=== PATIENT | female | born 1965 | race Caucasian/White ===

== ENCOUNTER 2016-06-05 11:07 | Emergency (ER) | payer OTHER ==
[~2016-06-05] VITALS: Ht 167.6 cm; Wt 108.0 kg
--- NOTE | 2016-06-05 11:28 | ED GI/GU/ABDOMINAL COMPLAINT ---
History of Present Illness General Chief Complaint: General Adult Stated Complaint: "I FEEL DEHYDRATION" Source: patient, old records Exam Limitations: no limitations Vital Signs & Intake/Output Vital Signs & Intake/Output Vital Signs Date Time Temp Pulse Resp B/P Pulse O2 O2 Flow FiO2 Ox Delivery Rate 06/05 1403 98.7 110 18 166/61 97 06/05 1218 99.5 100 18 128/78 98 Room Air Room Air 06/05 1113 97.8 112 20 131/83 97 Room Air Allergies Coded Allergies: acetaminophen (From VICODIN) (VOMIT 06/05/16) hydrocodone (From VICODIN) (VOMIT 06/05/16) morphine (DRY MOUTH 06/05/16) Reconcile Medications Ondansetron (Zofran Odt) 4 MG TAB.RAPDIS 1 TAB SL TID PRN NAUSEA Triage Note: ABDOMINAL PAIN X 2 DAYS N/V SINCE YESTERDAY. STATES SHARP PAINS IN ABDOMEN. STATES HER RIGHT HAND OCCASIONALLY HAS PINS AND NEEDLES IN IT Triage Nurses Notes Reviewed? yes ? n Is pt currently ? No Onset: Abrupt Duration: day(s): (2), intermittent, waxing and waning Timing: recent history Quality/Severity: aching, cramping Severity Numbers: 5 Location: generalized abdomen Radiation: no radiation Activities at Onset: none Prior Abdominal Problems: none No Modifying Factors: none Associated Symptoms: nausea/vomiting HPI: 50-year-old female with history of depression and IBS GERD presents emergency room complaining of a 2 day history of multiple episodes of nausea vomiting and generalized crampy intermittent abdominal pain. Pain is nonradiating. She denies any change in her bowel movements no diarrhea black or bloody stools no hematemesis.. The patient states she came in today because she feels dehydrated. She had some water and banana earlier this morning her last episode of vomiting was prior to this. She denies fevers or reports of chills. No cough congestion chest pain shortness of breath. She does not smoke. She reports to social alcohol use denies any recently. Her only abdominal surgery is significant 2005 for a polyp removal from her colon. No modifying factors or associated symptoms otherwise. (EUN HAYES,LASHAY) Past History Travel History Traveled to [place] past 21 day No Medical History Any Pertinent Medical History? see below for history Cardiovascular: GERD Psychiatric: depression Surgical History Surgical History: none Psychosocial History What is your primary language Kenyan Tobacco Use: Never used ETOH Use: occasional use Illicit Drug Use: denies illicit drug use Family History Hx Contributory? No (LASHAY MARTIN) Review of Systems Review of Systems Constitutional: Reports: see HPI. All Other Systems: Reviewed and Negative Comments Review of systems: See HPI, All other systems negative. Constitutional, no chills no fever, no malaise HEENT: No visual changes no sore throat no congestion Cardiovascular: No chest pain , no palpitation Skin, no jaundice no rashes, no change in skin Respiratory: No dyspnea no cough no sputum no hemoptysis GI: nausea vomiting, no diarrhea, no bloating/constipation : No dysuria No hematuria, no frequency, no discharge Muscle skeletal: No joint pain, no back pain, no neck pain, Neurologic: no headache Psych: No stress Heme/endocrine: No bruising no bleeding Immunology: No lymphadenopathy (LASHAY MARTIN) Physical Exam Physical Exam General Appearance: well developed/nourished, no apparent distress, alert, awake , comfortable Gastrointestinal: normal bowel sounds, soft, non-tender Comments: Well-developed well-nourished person in no acute distress HEENT: Normal EENT exam; PERRL, EOMI. HEAD is atraumatic. moist mucous membranes. Neck: Supple, no lymphadenopathy, normal range of motion Back: Nontender, no CVA tenderness. Full range of motion Cardiovascular: Regular rate and rhythms no murmurs rubs Respiratory: No respiratory distress. Patient speaking in full complete sentences. Breath sounds clear to auscultation bilaterally: NO W/R/R Abdomen: Soft, nontender nondistended, no appreciable organomegaly. Normal bowel sounds. No rebound/guarding, No appreciable enlargement of the abdominal aorta, No ascites. Extremity: No edema, full range of motion of extremities, Neuro: Alert oriented x3, motor sensory normal, There were no obvious focal neurologic abnormalities. Skin: No appreciable rash on exposed skin, skin is warm and dry. No jaundice Psych: Mood and affect is normal, memory and judgment is normal. Core Measures ACS in differential dx? No Severe Sepsis Present: No Septic Shock Present: No (LASHAY MARTIN) Progress Differential Diagnosis: appendicitis, biliary colic, bowel obstruction, colon cancer, cholecystitis, gastritis, hepatitis, inflamm bowel dis, intrauterine , pancreatitis, peptic ulcer, PUD/GERD Plan of Care: Orders Procedure Date/time Status HUMAN BETA HCG SCREEN 06/05 115 Complete Saline Lock 06/05 1132 Active LIPASE 06/05 1132 Complete COMPREHENSIVE METABOLIC PANEL 06/05 1132 Complete CBC WITHOUT DIFFERENTIAL 06/05 1132 Complete AMYLASE 06/05 1132 Complete Laboratory Tests 06/05/16 1157: Anion Gap 6, Estimated GFR > 60, BUN/Creatinine Ratio 35.0 H, Glucose 111 H, Calcium 9.1, Total Bilirubin 0.6, AST 28, ALT 46, Alkaline Phosphatase 68, Total Protein 7.0, Albumin 3.8, Globulin 3.2, Albumin/Globulin Ratio 1.2, Amylase 54, Lipase 65, Total Beta HCG NEGATIVE, CBC w Diff MAN DIFF ORDERED, RBC 4.77, MCV 85.7, MCH 29.5, RDW 13.6, MPV 7.3 L, Gran % 90.6 H, Lymphocytes % 6.2 L, Monocytes % 2.5, Eosinophils % 0.6, Basophils % 0.1, Absolute Granulocytes 6.0, Segmented Neutrophils 73, Band Neutrophils 12 H, Absolute Lymphocytes 0.4 L, Lymphocytes 9 L, Monocytes 5, Absolute Monocytes 0.2, Eosinophils 1, Absolute Eosinophils 0, Absolute Basophils 0, Platelet Estimate ADEQUATE, Anisocytosis 1+ , PUBS MCHC 34.4 06/05/16 1133: Total Beta HCG Cancelled Labs ordered old records reviewed patient medicated with Toradol 30 Pepcid 20 Zofran 4 IV fluids labs ordered 06/05/2016 1:24:14 PM I discussed with the patient at least all of her lab results she is resting comfortably she's had no episodes of vomiting in the department her abdomen remained soft nontender do not believe she requires any imaging studies. Symptoms are most likely viral in etiology which I discussed with her right discussed that there is possibility that this is an evolving process that we are not seeing and blood work yet. Discussed with her need for clear liquids, bland diet and advance as tolerated. She is tolerating by mouth challenge here without any nausea vomiting advise close follow-up with her primary care physician on Wednesday, advised to return anytime sooner for symptoms worsen I answered all her questions she feels comfortable this plan prescription for Zofran was provided (LASHAY MARTIN) Initial ED EKG: none (LASHAY MARTIN) Departure Departure Disposition: HOME OR SELF CARE Condition: Stable Clinical Impression Primary Impression: Nausea & vomiting Additional Instructions: [place] diet no fatty spicy greasy foods clear liquids advance diet as tolerated. Zofran for nausea and this was sent to your pharmacy. Clear liquids, return anytime sooner if her symptoms worsen despite medication or have any other concerns Departure Forms: Customer Survey General Discharge Information Prescriptions: Current Visit Scripts Ondansetron (Zofran Odt) 1 TAB SL TID PRN NAUSEA #10 TAB (LASHAY MARTIN) PA/OFFICE SUPPORT SPECIALIST Co-Sign Statement Statement: ED Attending supervision documentation- [] I saw and evaluated the patient. I have also reviewed all the pertinent lab results and diagnostic results. I agree with the findings and the plan of care as documented in the PA's/OFFICE SUPPORT SPECIALIST's documentation. [X] I have reviewed the ED Record and agree with the PA's/OFFICE SUPPORT SPECIALIST's documentation. [] Additions or exceptions (if any) to the PAs/OFFICE SUPPORT SPECIALIST's note and plan are summarized below: [] (GENEVA LARSON DO
[2016-06-05 12:06] LABS: ABSOLUTE BASOPHIL COUNT 0 /CUMM (0.0-0.2); ABSOLUTE EOSINOPHIL COUNT 0 /CUMM (0.0-0.7); ABSOLUTE LYMPH COUNT 0.4 /CUMM (1.2-3.4); ABSOLUTE MONOCYTE COUNT 0.2 /CUMM (0.10-0.60); BASOPHIL % 0.1 % (0.0-2.0); EOSINOPHIL % 0.6 % (0-5); GRANULOCYTE % 90.6 % (42.2-75.2); HEMATOCRIT 40.9 % (37-47); MEAN CORPUSCULAR HGB 29.5 PG (27.0-31.0); MEAN CORPUSCULAR HGB CONC 34.4 G/DL (33.0-37.0); MEAN CORPUSCULAR VOLUME 85.7 FL (81.0-99.0); MEAN PLATELET VOLUME 7.3 FL (7.4-10.4); PLATELET COUNT 226 /CUMM (130-400); RBC DISTRIBUTION WIDTH 13.6 % (11.5-14.5); RED BLOOD CELL CT 4.77 /CUMM (4.20-5.40); WHITE BLOOD CELL COUNT 6.6 /CUMM (4.8-10.8)
[2016-06-05] MEDS ORDERED: ZOFRAN ODT4 M1 SL (13:05)
[2016-06-05 14:03] VITALS: BP 166/61
== END 2016-06-05 14:18 ==
LOC: ERH 11:07
PROVIDERS: Physician Assistant Medical
DX: R11.2 Nausea with vomiting, unspecified (principal)
CPT/HCPCS: 96361; 96374; 96375; J1885; J2405; J7040